=== PATIENT | female | born 1940 | race Caucasian/White ===

== ENCOUNTER 2016-07-21 17:28 | Inpatient (IN) | payer MEDICARE, BC ==
[2016-07-21 17:56] VITALS: BMI 28.3
[2016-07-21 17:59] LABS: MPV 9.6 fL (7.4-10.4)
[2016-07-21 18:04] LABS: ALLEN'S TEST PASS; BEb 2.2 (+/- 2); TCO2 26.1 MMOL/L (23-27)
[2016-07-21 18:05] LABS: ABG Draw Site LRA
[2016-07-21 18:11] LABS: BLOOD UREA NITROGEN 18 MG/DL (7-17); CALC CORRECTED 9.7 MG/DL (8.4-10.2); CALCULATED OSMOLALITY 252 MOs/Kg (270-290); CHLORIDE 98 mEq/L (98-107); GLUCOSE 72 MG/DL (70-99); SODIUM LEVEL 130 mEq/L (137-146); TOTAL PROTEIN 7.9 G/DL (6.3-8.2)
--- NOTE | 2016-07-21 18:11 | EDPRACDOC ---
- General Information Chief Complaint: Altered Mental Status Stated Complaint: AMS Time Seen by Provider: 07/21/16 17:46 Information Source: Patient, [employer] Mode Of Arrival: Ambulance Home Medications: Home Medications Levothyroxine Sodium [Synthroid] 25 mcg PO DAILY 10/03/12 Losartan Potassium [Cozaar] 100 mg PO DAILY 10/03/12 Oxybutynin [Ditropan] 5 mg PO BID 10/03/12 Pravastatin [Pravachol] 20 mg PO HS 10/03/12 Tiotropium [Spiriva Handihaler] 18 mcg INH QHS 10/03/12 Aspirin [Aspirin EC] 1 tab PO QHS 11/09/14 Budesonide/Formoterol [Symbicort 160-4.5 Mcg Inhaler] 2 inh PO BID 11/09/14 Ferrous Sulfate [Iron] 2 tab PO DAILY 11/09/14 Lactulose [Constulose] 2 tbsp PO TID 11/03/15 Polyethylene Glycol 3350 [Miralax] 17 gm PO DAILY PRN 11/03/15 Spironolactone 25 mg PO DAILY #30 tablet 11/03/15 Albuterol/Ipratropium Neb [Duoneb] 3 ml NEB Q6H PRN 05/25/16 CYANOCOBALAMIN (Vitamin B-12) [Vitamin B-12 (cyanocobalamin)] 1,000 mcg IM .MONTHLY 05/25/16 Fluticasone Propionate [Flonase] 2 spray MELANIE DAILY 05/25/16 Furosemide [Lasix] 40 mg PO DAILY 05/25/16 LIDOCAINE 5% Patch [Lidoderm 5% Patch] 1 patch TOP DAILY PRN 05/25/16 Loratadine 10 mg PO DAILY 05/25/16 Metoprolol Succinate (XL) [Toprol Xl] 25 mg PO DAILY 05/25/16 Nystatin 5 ml PO QID 05/25/16 Omeprazole 40 mg PO BID 05/25/16 Calcium Carbonate + Vitamin D [Oscal with Vitamin D] 500 mg PO DAILY 06/14/16 Cholecalciferol (Vitamin D3) [Vitamin D3] 2,000 unit PO DAILY 06/14/16 Citalopram (anti-depressant) [Celexa] 20 mg PO DAILY 06/14/16 Glipizide 5 mg PO QHS 06/14/16 Insulin Glargine [Lantus Pen] 50 units SQ BID 06/14/16 Allergies/Adverse Reactions: Allergies Allergy/AdvReac Type Severity Reaction Status Date / Time clarithromycin [From Biaxin] Allergy Unknown Verified 06/14/16 02:58 trazodone Allergy Rash-Genera Verified 06/14/16 02:58 lized - History of Present Illness Onset: 3 days Exact Onset of Symptoms: Unknown HPI: PT WAS SENT HERE BY EMS FROM THE home B/C OF ALTERED MENTAL STATUS. THE PT IS UNABLE TO GIVE ANY HX. Symptoms began: Gradually Duration: Since Onset Symptoms Currently: Reports: Improved Altered Quality: Reports: Decreased Alertness Altered Severity: Reports: Severe Recent Symptoms of: Reports: None - Treatment Prior to ED Arrival Reported Medications/Treatment [facility] EMS Treatment ALS IV Yes ED Past Medical History - Patient Medical History Neurological History: Reports: MigraineComment Only: Cerebrovascular Accident ( but possible TIA per records) Cardiac History: Reports: Hypertension, Hypercholesterolemia Respiratory History: Reports: COPD, Pneumonia, Emphysema GI/ History: Reports: Urinary Tract Infection, 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 Dr. Covarrubias.), Gastroesophageal Reflux, Ulcer (possible. Known episode of GI bleed.) Musculoskeletal History: Reports: Arthritis Psychological History: Reports: Depression, Anxiety. Denies: Substance Use Disorder Systemic History: Reports: Anemia (chronic iron deficiency anemia of unknown etology), Diabetes (Type 2.), Hypothyroidism. Denies: Cancer Surgical History: Reports: Cholecystectomy, Hysterectomy, Other (R ear x 2. Nasal surgery for trauma. Cataracts. Bladder tack.) - Family Medical History Reports: Hypertension (multi-family), Diabetes (multi-family), Cancer (sisters ( breast) niece (breast) son (kidney)), Stroke (multi-family), Cardiac Disorders ( multi-family) - Social Medical History Smoking Status: Former smoker Social History: Denies: Substance Use Disorder ETOH: None Substance Abuse: None Lives In: Home EDM Review of Systems - Review of Systems ROS Unobtainable: Yes Review of systems cannot be obtained due to the patient's medical condition - Physical Exam Constitutional: Decreased Consciousness, Somnolent Oriented to: Not Oriented Last recorded Vital Signs: Last Vital Signs Temp 98.4 F 07/21/16 17:30 Pulse 98 07/21/16 17:55 Resp 18 07/21/16 17:55 BP 96/42 L 07/21/16 17:55 Pulse Ox 92 07/21/16 17:55 Oxygen Pulse Oxygen Saturation 92 O2 Device Oxygen Flow Rate Fraction of Inspired Oxygen ( FIO2) - HEENT Head: Normal ( normocephalic) Eye Exam: Normal (PERRL, EOMI, Sclera white) Oropharynx: Membranes Dry ENT EAC: Normal TMJ: Normal Nose: No Symptoms Reported (septum midline) Neck: Normal (FROM, trachea at midline) - Respiratory/Cardiovascular Respiratory: Normal - CTA (BBS clear to auscultation without adventitious sounds ) Cardiovascular: Normal (RRR without murmur, gallop or rub) - GI Auscultation: Normal (NABS) Palpation: Normal (Soft,No rebound or guarding, non distended) Tenderness: Non tender Elliott's Sign: Negative - Musculoskeletal Back: Normal (Non-Tender) Extremities: Normal (Normal tone, Pulses 2+ No cyanosis or edema, FROM) - Integumentary Skin: Normal, Warm, Dry Lymphatics: Normal (no adenopathy) - Neurologic Memory Impaired: Unable to Test Motor Function: Unable to Test Cranial Nerve: Unable to Test - Re-evaluation Re-evaluation 1 Re-evaluation Time: 19:30 (more alert, but not back to nl) - Results 07/21/16 17:35 07/21/16 17:35 Puncture Site Lra 07/21/16 18:01 pH 7.490 pH UNITS (7.35-7.45) H 07/21/16 18:01 pCO2 33.0 mmHg (35-45) L 07/21/16 18:01 pO2 59.0 mmHg (80-100) L 07/21/16 18:01 HCO3 25.1 MMOL/L (22-26) 07/21/16 18:01 Total CO2 26.1 MMOL/L (23-27) 07/21/16 18:01 Base Excess 2.2 (+/- 2) H 07/21/16 18:01 FiO2 % 21 07/21/16 18:01 Specimen Drawn By Martin 07/21/16 18:01 Lab Results 07/21/16 18:01 Puncture Site Lra pH 7.490 H pCO2 33.0 L pO2 59.0 L HCO3 25.1 Total CO2 26.1 Base Excess 2.2 H FiO2 % 21 Specimen Drawn By Dared - EKG EKG #1 EKG Time: 18:17 -: Yes EKG interpreted by me Rate: bpm: 92 [place]: Normal Rhythm: NSR Block: None Hypertrophy: None ST: Normal - Diagnostic Imaging Chest Image interpreted by: Radiologist Left basilar opacity is likely due to atelectasis rather than pneumonia. - Departure Yes I personally saw and evaluated the patient. Disposition: Admit IP To This Hospital Condition: Fair Final Diagnosis: Altered mental status, Acute hypoxemic respiratory failure, LLL pneumonia, Delirium Education/Counseling Given To: Patient Education/Counseling Given Regarding: Diagnosis, Treatment Referrals: Anthony Durham MD [Primary Care Provider] - One Week Decision to Admit Time: 19:24 Decision to admit date: 07/21/16 Decision to admit: from ED - Physician Consulted Hospitalist Provider Called: Bran Greenberg
[2016-07-21 18:14] LABS: PARTIAL THROMB. TIME 19.4 SEC (22-35); PT-INR 1.1
--- NOTE | 2016-07-21 18:17 | DIRPT ---
CLINICAL DATA: Shortness of breath. Altered mental status. Symptoms today. Initial encounter. EXAM: PORTABLE CHEST 1 VIEW COMPARISON: Single view of the chest 05/25/2015, 06/18/2016 and 06/23/2016. CT chest 05/25/2016. FINDINGS: Mild opacity is seen in the left lung base. The right lung is clear. Heart size is normal. No pneumothorax or pleural effusion. IMPRESSION: Left basilar opacity is likely due to atelectasis rather than pneumonia. Electronically Signed By: Eliot Zamora M.D. On: 07/21/2016 18:15
[2016-07-21 19:10] LABS: LEUKOCYTES/URINE NEG (NEGATIVE); NITRITE/URINE NEG (NEGATIVE); RBC/URINE 0-2 (0-5); URINE OCCULT BLOOD NEG (NEG/TRACE); WBC/URINE 0-2 (0-5)
[2016-07-21 19:11] LABS: SEG NEUTROPHIL 85 % (45-76)
[2016-07-21 19:18] LABS: FREE T3 3.28 pg/mL (2.77-5.27); FREE T4 1.41 ng/dL (0.78-2.19)
[2016-07-21] MEDS ORDERED: PIPERACILLIN AND TAZOBACTAM 3.375 GM in D5W 100 ML IV ONE (19:22)
[2016-07-21 19:32] LABS: hTSH 3.1 uIU/mL (0.5-4.67)
[2016-07-21] MEDS ORDERED: PEG-ELECTROLYTE 17 GM PACK PO PRN (19:40)
--- NOTE | 2016-07-21 19:40 | HISTPHYS ---
- Chief Complaint Left lower lobe pneumonia - History of Present Illness This is a 76-year-old female who lives with her family in the [facility] and been noted to be quite confused over the last several days. She is normally quite active around the home, but was the confused last few days and also started to cough the last couple of days, coughing up thick green sputum per her son was at the bedside this evening in the emergency department. They note that she had a subjective fever at home tonight, but they did not have a thermometer to measure it with. The patient has also been complaining of some shortness of breath with exertion. Otherwise, she denies any chest pain, shortness of breath at rest, nausea, abdominal pain, changes in bowel or bladder habits, any changes in her weight. No sick contacts or recent travel. No therapies tried prior to arrival. In the emergency department, chest x-ray revealed a left lower lobe pneumonia. Hospitalist group was consulted for further evaluation and inpatient management. 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 Dr. Covarrubias.), Gastroesophageal Reflux, Ulcer (possible. Known episode of GI bleed.) Musculoskeletal History: Reports: Arthritis Systemic History: Reports: Anemia (chronic iron deficiency anemia of unknown etology), Diabetes (Type 2.), Hypothyroidism. Denies: Cancer Neurological History: Reports: MigraineComment Only: Cerebrovascular Accident ( but possible TIA per records) Psychological History: Reports: Depression, Anxiety. Denies: Substance Use Disorder - Surgical History Reports: Cholecystectomy, Hysterectomy, Other (R ear x 2. Nasal surgery for trauma. Cataracts. Bladder tack.) - Medictions/Allergies Allergies clarithromycin [From Biaxin] Allergy (Verified 06/14/16 02:58) Unknown trazodone Allergy (Verified 06/14/16 02:58) Rash-Generalized Home Medications Levothyroxine Sodium [Synthroid] 25 mcg PO DAILY 10/03/12 Losartan Potassium [Cozaar] 100 mg PO DAILY 10/03/12 Oxybutynin [Ditropan] 5 mg PO BID 10/03/12 Pravastatin [Pravachol] 20 mg PO HS 10/03/12 Tiotropium [Spiriva Handihaler] 18 mcg INH QHS 10/03/12 Aspirin [Aspirin EC] 1 tab PO QHS 11/09/14 Budesonide/Formoterol [Symbicort 160-4.5 Mcg Inhaler] 2 inh PO BID 11/09/14 Ferrous Sulfate [Iron] 2 tab PO DAILY 11/09/14 Lactulose [Constulose] 2 tbsp PO TID 11/03/15 Polyethylene Glycol 3350 [Miralax] 17 gm PO DAILY PRN 11/03/15 Spironolactone 25 mg PO DAILY #30 tablet 11/03/15 Albuterol/Ipratropium Neb [Duoneb] 3 ml NEB Q6H PRN 05/25/16 CYANOCOBALAMIN (Vitamin B-12) [Vitamin B-12 (cyanocobalamin)] 1,000 mcg IM .MONTHLY 05/25/16 Fluticasone Propionate [Flonase] 2 spray MELANIE DAILY 05/25/16 Furosemide [Lasix] 40 mg PO DAILY 05/25/16 LIDOCAINE 5% Patch [Lidoderm 5% Patch] 1 patch TOP DAILY PRN 05/25/16 Loratadine 10 mg PO DAILY 05/25/16 Metoprolol Succinate (XL) [Toprol Xl] 25 mg PO DAILY 05/25/16 Nystatin 5 ml PO QID 05/25/16 Omeprazole 40 mg PO BID 05/25/16 Calcium Carbonate + Vitamin D [Oscal with Vitamin D] 500 mg PO DAILY 06/14/16 Cholecalciferol (Vitamin D3) [Vitamin D3] 2,000 unit PO DAILY 06/14/16 Citalopram (anti-depressant) [Celexa] 20 mg PO DAILY 06/14/16 Glipizide 5 mg PO QHS 06/14/16 Insulin Glargine [Lantus Pen] 50 units SQ BID 06/14/16 - Family History Reports: Hypertension (multi-family), Diabetes (multi-family), Cancer (sisters ( breast) niece (breast) son (kidney)), Stroke (multi-family), Cardiac Disorders ( multi-family) - Social History Smoking Status: Former smoker Social History: Denies: Substance Use Disorder - Review of Systems Yes All systems reviewed and were negative except as marked (And as mentioned in the history of present illness above.) Constitutional: No Symptoms Reported (No fever, chills, wt loss/gain, fatigue) Eyes: No Symptoms Reported (No blurry vision, visual changes) Respiratory: No Symptoms Reported (No cough,wheezing or shortness of breath) Cardiovascular: No Symptoms Reported (No Chest pain, palpitations) Gastrointestinal: No Symptoms Reported (No abdominal pain, nausea, vomiting, diarrhea or constipation) Genitourinary: No Symptoms Reported (No dysuria) Musculoskeletal:: No Symptoms Reported (No headache, dizzness, seizures or focal weakness) Integumentary: No Symptoms Reported (No rashes or lesions) Hematologic: No Symptoms Reported (No bleeding or easy bruising) Endocrine: No Symptoms Reported (No polyuria) - Physical Exam Vital Signs: Initial Vitals Temperature 98.4 F 07/21/16 17:30 Pulse Rate 98 07/21/16 17:30 Respiratory Rate 16 07/21/16 17:30 Blood Pressure 113/53 L 07/21/16 17:30 Pulse Oxygen Saturation 88 L 07/21/16 17:30 Exam: Thin frail and disheveled elderly woman lying in a stretcher in the emergency department. She is awake and alert, but oriented only to self and place. - HEENT Head: Normal (normocephalic,atraumatic, trachea midline) Eye: Normal (EOMI, Sclera white) Oropharynx: Normal (moist) Nose: No Symptoms Reported (without discharge or bleeding) Respiratory: Diminished Cardiovascular: Normal (RRR, no murmurs, rubs or gallops) - GI Palpation: Normal (soft, non distended and nontender) - Musculoskeletal Extremities: Normal (normal tone, no cyanosis or edema) - Integumentary Skin: Normal (no rashes or lesions) - Focused CV Perfusion Exam Vital Signs: Last Vital Signs Temp 98.4 F 07/21/16 17:30 Pulse 98 07/21/16 17:55 Resp 18 07/21/16 17:55 BP 96/42 L 07/21/16 17:55 Pulse Ox 92 07/21/16 17:55 - Lab Results Laboratory Tests 06/24/16 06/24/16 07/21/16 05:15 05:15 17:35 WBC 8.3 Hgb 11.6 L Hct Plt Count INR pH pCO2 pO2 Sodium 130 L Potassium 4.0 4.5 BUN 20 H 18 H Creatinine 1.10 H 1.00 AST 51 H ALT 47 Alkaline Phosphatase 139 Troponin I < 0.01 TSH 07/21/16 07/21/16 07/21/16 17:35 17:35 17:35 WBC 25.9 H Hgb 12.8 Hct 37.5 Plt Count 127 L INR 1.1 pH pCO2 pO2 Sodium Potassium BUN Creatinine AST ALT Alkaline Phosphatase Troponin I TSH 3.10 07/21/16 18:01 WBC Hgb Hct Plt Count INR pH 7.490 H pCO2 33.0 L pO2 59.0 L Sodium Potassium BUN Creatinine AST ALT Alkaline Phosphatase Troponin I TSH - Diagnostic Findings Chest x-ray: Mild opacity is seen in the left lung base. The right lung is clear. Heart size is normal. No pneumothorax or pleural effusion. - Assessment (1) LLL pneumonia J18.1 - LOBAR PNEUMONIA, UNSPECIFIED ORGANISM Acute Qualifiers: Pneumonia type: P Aspiration pneumonia type: A Seen on chest x-ray, this is likely the cause of her metabolic encephalopathy. Will treat empirically with IV azithromycin and Rocephin. Follow-up chest x- ray in 48 hours. Pneumonia evidence based care order set has been utilized. (2) Acute hypoxemic respiratory failure J96.01 - ACUTE RESPIRATORY FAILURE WITH HYPOXIA Acute Due to her community- acquired pneumonia. (3) COPD exacerbation J44.1 - CHRONIC OBSTRUCTIVE PULMONARY DISEASE W (ACUTE) EXACERBATION Acute Moderate. Plan: Duonebs q 6hrs and prn albuterol. O2 by NC. Will add IV steroids if respiratory status worsens, but hold off initially as she is not actively wheezing. (4) Hypothyroidism E03.9 - HYPOTHYROIDISM, UNSPECIFIED Acute Qualifiers: Hypothyroidism type: unspecified Qualified Code(s): E03.9 - Hypothyroidism , unspecified Cont home synthroid. (5) Metabolic encephalopathy G93.41 - METABOLIC ENCEPHALOPATHY Acute Likely due to PNA. Ammonia level is only 21, so this is unlikely to be the cause. 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 Cirrhosis related to QUARLES. (7) Poorly controlled diabetes mellitus E11.65 - TYPE 2 DIABETES MELLITUS WITH HYPERGLYCEMIA Chronic Sliding scale insulin therapy as well as reinstitution of her home medications to be given. Case Care Discussed with: Patient, Family, Nursing Staff Total Time: 41
[2016-07-21] MEDS ORDERED: ONDANSETRON HCL 4 MG/2 ML VIAL IV PRN (19:42)
[2016-07-21] MEDS ORDERED: ACETAMINOPHEN 325 MG/TAB TABLET PO PRN (19:42)
[2016-07-21] MEDS ORDERED: ALBUTEROL 0.083% 3 ML NEB NEB PRN (19:43)
[2016-07-21] MEDS ORDERED: GLARGINE INSULIN (LANTUS) 100 UNITS/ML PEN SQ SCH (20:00)
[2016-07-21] MEDS ORDERED: FLUTICASONE PROPIONATE 16 GM BOT NAS SCH (20:00)
[2016-07-21] MEDS: Albuterol/Ipratropium Neb 3 ML NEB NEB SCH (20:10)
[2016-07-21] MEDS ORDERED: GLUCOSE (ORAL GEL) 15 GM TUBE PO PRN (20:36)
[2016-07-21] MEDS ORDERED: DEXTROSE 25 GM/50 ML PFS IV PRN (20:36)
[2016-07-21] MEDS ORDERED: GLUCAGON 1 MG VIAL SQ PRN (20:36)
[2016-07-21] MEDS ORDERED: Non-Formulary Medication ITEM (Tiotropium [Spiriva Handihaler] 18 MCG) INH SCH (21:00)
[2016-07-21] MEDS: CEFTRIAXONE 1 GM in D5W 100 ML IV SCH (21:09)
[2016-07-21] MEDS: NS 1,000 ML IV SCH (21:09)
[2016-07-21] MEDS: REGULAR INSULIN 100 UNITS/ML - 3 ML VIAL SQ SCH (21:12)
[2016-07-21] MEDS: GLARGINE INSULIN (LANTUS) 100 UNITS/ML PEN SQ SCH (21:16)
[2016-07-21] MEDS: GLIPIZIDE 5 MG TAB PO SCH (21:17)
[2016-07-21] MEDS: ENOXAPARIN 40 MG/0.4 ML PFS SQ SCH (21:17)
[2016-07-21] MEDS: OXYBUTYNIN 5 MG TAB PO SCH (21:17)
[2016-07-21] MEDS: LACTULOSE 20 GM/30 ML ORAL SOLN PO SCH (21:17)
[2016-07-21] MEDS: NYSTATIN ORAL SUSP 5 ML PO SCH (21:17)
[2016-07-21] MEDS: PRAVASTATIN 20 MG TAB PO SCH (21:17)
[2016-07-21] MEDS ORDERED: Vaccine Screening Complete SCH (22:00)
[2016-07-21] MEDS: AZITHROMYCIN 500 MG in D5W 250 ML IV SCH (22:15)
[2016-07-22] MEDS: Albuterol/Ipratropium Neb 3 ML NEB NEB SCH ×4 (01:52→21:17)
[2016-07-22] MEDS ORDERED: PIPERACILLIN AND TAZOBACTAM 4.5 GM in D5W 100 ML IV SCH (02:00)
[2016-07-22 04:41] LABS: MPV 9.4 fL (7.4-10.4)
[2016-07-22 04:49] LABS: BLOOD UREA NITROGEN 19 MG/DL (7-17); CALCIUM 8.1 MG/DL (8.4-10.2); CALCULATED OSMOLALITY 251 MOs/Kg (270-290); CHLORIDE 96 mEq/L (98-107); GLUCOSE 126 MG/DL (70-99); SODIUM LEVEL 128 mEq/L (137-146)
[2016-07-22] MEDS: PANTOPRAZOLE 40 MG TAB PO SCH ×2 (06:10→18:21)
[2016-07-22] MEDS: LACTULOSE 20 GM/30 ML ORAL SOLN PO SCH ×2 (06:10→13:32)
[2016-07-22] MEDS: REGULAR INSULIN 100 UNITS/ML - 3 ML VIAL SQ SCH ×3 (06:10→18:21)
[2016-07-22] MEDS: NYSTATIN ORAL SUSP 5 ML PO SCH ×3 (08:45→18:21)
[2016-07-22] MEDS: OXYBUTYNIN 5 MG TAB PO SCH (08:45)
[2016-07-22] MEDS: FERROUS SULFATE 324 MG TAB PO SCH ×2 (08:45→18:21)
[2016-07-22] MEDS: SPIRONOLACTONE 25 MG TAB PO SCH (08:45)
[2016-07-22] MEDS: Loratadine 10 MG TAB PO SCH (08:45)
[2016-07-22] MEDS: GLARGINE INSULIN (LANTUS) 100 UNITS/ML PEN SQ SCH (08:46)
[2016-07-22] MEDS: FLUTICASONE PROPIONATE 16 GM BOT NAS SCH (08:46)
[2016-07-22] MEDS: LEVOTHYROXINE 25 MCG (0.025 MG) TAB PO SCH (08:49)
[2016-07-22] MEDS: METOPROLOL (TOPROL-XL) 25 MG TAB PO SCH (08:49)
[2016-07-22] MEDS: FUROSEMIDE 40 MG TAB PO SCH (08:49)
[2016-07-22] MEDS: NS 1,000 ML IV SCH ×2 (08:50→18:19)
--- NOTE | 2016-07-22 09:36 | GENMEDPROG ---
Chief Complaint: States he is feeling better today less shortness breath patient complains of soreness in the site of previous right rib fractures Notes Reviewed: Yes Events from last night noted and discussed with Clinical Staff Current Medication List: Reviewed Currently: Reports: Cough, Wheezing DVT Prophylaxis: Yes - Physical Examination Vital Signs and I&O: Last Vital Signs Temp 98.0 F 07/22/16 08:12 Pulse 100 07/22/16 08:12 Resp 16 07/22/16 08:12 BP 127/60 07/22/16 08:12 Pulse Ox 95 07/22/16 08:12 Oxygen Pulse Oxygen Saturation 95 O2 Device Nasal Cannula Oxygen Flow Rate 3 Fraction of Inspired Oxygen ( 40 FIO2) Intake & Output 07/19/16 07/20/16 07/21/16 07/22/16 23:59 23:59 23:59 23:59 Intake Total 30 1164 Output Total 500 Balance 30 664 Patient's weight 74.752 kg General: Alert, Oriented x3, No acute distress, Well appearing, Well nourished HEENT: Normal (Normocephalic, atraumatic;EOMI.Sclera white, Nares patent, without discharge or bleeding. No oropharyngeal lesions or erythema. Mucous membranes are dry.) Neck: Non-tender, Full range of motion, Normal Trachea alignment, Normal inspection (No cervical lymphadenopathy. No supraclavicular lymphadenopathy.), No Masses palpable, Supple Lymphatics: Normal (No lymph node swelling or pain.) Respiratory: Diminished, Rhonchi, Wheezes. negative: Rales Cardiovascular: Regular rate and rhythm (No bradycardia or tachycardia), Normal S1, No Gallops,Rubs/Murmurs, Normal S2 GI: Normal bowel sounds (normal active sounds), Soft (non-distended), Non tender , No hepatospenomegaly, No masses Extremities/Musculoskeletal: Normal pulses (DP pulses 2+ bilaterally) Skin: Warm,Dry and Intact, No rashes, No significant lesion Neurological: Strength at 5/5 X4 ext (Motor 5/5 throughout.), Normal tone, Cranial nerves 3-12 NL ( 2-12 grossly intact.) Psych/Mental Status: Cooperative. negative: Anxious Lab/DI/Studies Reviewed: 07/22/16 04:10 07/22/16 04:10 Laboratory Results - last 24 hr 07/21/16 07/22/1607/22/17 23:15 04:10 04:10 WBC 19.4 H RBC 3.35 L Hgb 10.9 L D Hct 32.4 L MCV 97 MCH 32.7 H MCHC 33.7 RDW 13.5 Plt Count 101 L MPV 9.4 Sodium 128 L Potassium 3.8 Chloride 96 L Carbon Dioxide 25 Anion Gap 11 BUN 19 H Creatinine 1.20 H Estimated GFR (MDRD) 44 L Glucose 126 H POC Capillary Glucose Calculated Osmolality 251 L Calcium 8.1 L Troponin I < 0.01 07/22/16 07/22/16 07/22/16 05:02 13:30 17:04 WBC RBC Hgb Hct MCV MCH MCHC RDW Plt Count MPV Sodium Potassium Chloride Carbon Dioxide Anion Gap BUN Creatinine Estimated GFR (MDRD) Glucose POC Capillary Glucose 131 H 225 H 204 H Calculated Osmolality Calcium Troponin I 07/22/16 20:26 WBC RBC Hgb Hct MCV MCH MCHC RDW Plt Count MPV Sodium Potassium Chloride Carbon Dioxide Anion Gap BUN Creatinine Estimated GFR (MDRD) Glucose POC Capillary Glucose 179 H Calculated Osmolality Calcium Troponin I - Assessment (1) Acute hypoxemic respiratory failure Acute J96.01 - ACUTE RESPIRATORY FAILURE WITH HYPOXIA Comment/Plan: Due to her community-acquired pneumonia. (2) COPD exacerbation Acute J44.1 - CHRONIC OBSTRUCTIVE PULMONARY DISEASE W (ACUTE) EXACERBATION Comment/Plan: Moderate. Plan: Duonebs q 6hrs and prn albuterol. O2 by NC. Will add IV steroids if respiratory status worsens, but hold off initially as she is not actively wheezing. (3) Hypothyroidism Acute E03.9 - HYPOTHYROIDISM, UNSPECIFIED Qualifiers: Hypothyroidism type: acquired Qualified Code(s): E03.9 - Hypothyroidism, unspecified Comment/Plan: Cont home synthroid. (4) Pneumonia Acute J18.9 - PNEUMONIA, UNSPECIFIED ORGANISM Comment/Plan: IV antibiotics including Rocephin Zithromax. (5) Type 2 diabetes mellitus with hyperglycemia Acute E11.65 - TYPE 2 DIABETES MELLITUS WITH HYPERGLYCEMIA Qualifiers: Diabetes mellitus manager intermediate insulin use: with manager intermediate use Qualified Code( s): E11.65 - Type 2 diabetes mellitus with hyperglycemia; Z79.4 - manager intermediate ( current) use of insulin Comment/Plan: Continue with current medications and sliding scale insulin coverage. A1c is 7.6. (6) Non-alcoholic cirrhosis Chronic K74.60 - UNSPECIFIED CIRRHOSIS OF LIVER Comment/Plan: 06/18/2016 continue with lactulose. Cirrhosis related to QUARLES. Case Care Discussed with: Patient, Nursing Staff, Resource Management Education/Counseling Given To: Patient Education/Counseling Given Regarding: Diagnosis, Treatment Total Time: 37 min Critical Care: No Code: 71889 (12+)
[2016-07-23] MEDS: Albuterol/Ipratropium Neb 3 ML NEB NEB SCH ×2 (01:49→08:35)
[2016-07-23] MEDS: NS 1,000 ML IV SCH ×2 (03:50→07:28)
[2016-07-23] MEDS: OXYBUTYNIN 5 MG TAB PO SCH ×2 (03:51→08:43)
[2016-07-23] MEDS: LACTULOSE 20 GM/30 ML ORAL SOLN PO SCH ×3 (03:52→13:26)
[2016-07-23] MEDS: CEFTRIAXONE 1 GM in D5W 100 ML IV SCH (03:52)
[2016-07-23] MEDS: ENOXAPARIN 40 MG/0.4 ML PFS SQ SCH (03:55)
[2016-07-23] MEDS: PRAVASTATIN 20 MG TAB PO SCH (03:56)
[2016-07-23] MEDS: NYSTATIN ORAL SUSP 5 ML PO SCH ×3 (03:56→11:57)
[2016-07-23] MEDS: REGULAR INSULIN 100 UNITS/ML - 3 ML VIAL SQ SCH ×3 (04:07→11:50)
[2016-07-23] MEDS: GLARGINE INSULIN (LANTUS) 100 UNITS/ML PEN SQ SCH ×2 (04:09→08:44)
[2016-07-23] MEDS: GLIPIZIDE 5 MG TAB PO SCH (04:09)
[2016-07-23] MEDS: AZITHROMYCIN 500 MG in D5W 250 ML IV SCH (04:26)
[2016-07-23] MEDS: PROBIOTIC BLEND TAB PO SCH ×2 (04:45→11:57)
[2016-07-23 07:26] LABS: MPV 9.1 fL (7.4-10.4)
[2016-07-23] MEDS: PANTOPRAZOLE 40 MG TAB PO SCH (07:28)
[2016-07-23 07:37] LABS: BLOOD UREA NITROGEN 14 MG/DL (7-17); CALCIUM 7.9 MG/DL (8.4-10.2); CALCULATED OSMOLALITY 260 MOs/Kg (270-290); CHLORIDE 103 mEq/L (98-107); GLUCOSE 169 MG/DL (70-99); SODIUM LEVEL 132 mEq/L (137-146)
--- NOTE | 2016-07-23 08:18 | DIRPT ---
CLINICAL DATA: Followup pneumonia. EXAM: CHEST 2 VIEW COMPARISON: 07/21/2016 FINDINGS: The cardiac silhouette, mediastinal and hilar contours are within normal limits and stable. There is tortuosity and calcification of the thoracic aorta. Chronic underlying lung disease with emphysema and pulmonary scarring. Slight progression of interstitial process in the left lung and left basilar atelectasis or infiltrate. No pleural effusion. IMPRESSION: Slight progression of interstitial process in the left lung and left basilar atelectasis or infiltrate. Electronically Signed By: Prashanth Maria M.D. On: 07/23/2016 08:16
[2016-07-23] MEDS: FERROUS SULFATE 324 MG TAB PO SCH (08:42)
[2016-07-23] MEDS: Loratadine 10 MG TAB PO SCH (08:43)
[2016-07-23] MEDS: SPIRONOLACTONE 25 MG TAB PO SCH (08:43)
[2016-07-23] MEDS: FLUTICASONE PROPIONATE 16 GM BOT NAS SCH (08:44)
[2016-07-23] MEDS: METOPROLOL (TOPROL-XL) 25 MG TAB PO SCH (08:45)
[2016-07-23] MEDS: LEVOTHYROXINE 25 MCG (0.025 MG) TAB PO SCH (08:45)
[2016-07-23] MEDS: FUROSEMIDE 40 MG TAB PO SCH (08:45)
--- NOTE | 2016-07-23 12:06 | PCM.DCS92 ---
- Final/Secondary Discharge Diagnosis (1) Acute hypoxemic respiratory failure Acute J96.01 - ACUTE RESPIRATORY FAILURE WITH HYPOXIA Present on Admission: Yes Comment: Due to her community-acquired pneumonia. (2) COPD exacerbation Acute J44.1 - CHRONIC OBSTRUCTIVE PULMONARY DISEASE W (ACUTE) EXACERBATION Present on Admission: Yes Comment: Moderate. Plan: Duonebs q 6hrs and prn albuterol. O2 by NC. Will add IV steroids if respiratory status worsens, but hold off initially as she is not actively wheezing. (3) Hypothyroidism Acute E03.9 - HYPOTHYROIDISM, UNSPECIFIED Present on Admission: Yes acquired E03.9 - Hypothyroidism, unspecified Comment: Cont home synthroid. (4) Pneumonia Acute J18.9 - PNEUMONIA, UNSPECIFIED ORGANISM Present on Admission: Yes Comment: IV antibiotics including Rocephin Zithromax. (5) Type 2 diabetes mellitus with hyperglycemia Acute E11.65 - TYPE 2 DIABETES MELLITUS WITH HYPERGLYCEMIA Present on Admission: Yes with shelter use E11.65 - Type 2 diabetes mellitus with hyperglycemia; Z79.4 - terminal system operator (current) use of insulin Comment: Continue with current medications and sliding scale insulin coverage. A1c is 7.6. 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 Cirrhosis related to QUARLES. Discharge Disposition: Discharge w/ Home Health Discharge Condition: Improved Cognitive Discharge Status: Unimpaired Fuctional Discharge Status: Walker Assistance Physician Follow up/Referrals: Anthony Durham MD [Primary Care Provider] - 07/30/16 10:00 am Home Medications / New Prescriptions: New Azithromycin [Zithromax Tri-Feliciano] 500 mg PO DAILY #3 tablet Cefdinir [Omnicef] 300 mg PO BID #10 cap Probiotic Blend [Anca Q] 1 each PO BID #20 tab Continue Losartan Potassium [Cozaar] 100 mg PO DAILY Levothyroxine Sodium [Synthroid] 25 mcg PO DAILY Tiotropium [Spiriva Handihaler] 18 mcg INH QHS Pravastatin [Pravachol] 20 mg PO HS Oxybutynin [Ditropan] 5 mg PO BID Ferrous Sulfate [Iron] 2 tab PO DAILY Aspirin [Aspirin EC] 1 tab PO QHS Budesonide/Formoterol [Symbicort 160-4.5 Mcg Inhaler] 2 inh PO BID Polyethylene Glycol 3350 [Miralax] 17 gm PO DAILY PRN PRN Reason: Constipation Lactulose [Constulose] 2 tbsp PO TID Spironolactone 25 mg PO DAILY #30 tablet Nystatin 5 ml PO QID CYANOCOBALAMIN (Vitamin B-12) [Vitamin B-12 (cyanocobalamin)] 1,000 mcg IM .MONTHLY Albuterol/Ipratropium Neb [Duoneb] 3 ml NEB Q6H PRN PRN Reason: Shortness Of Breath Metoprolol Succinate (XL) [Toprol Xl] 25 mg PO DAILY Loratadine 10 mg PO DAILY Furosemide [Lasix] 40 mg PO DAILY Omeprazole 40 mg PO BID Fluticasone Propionate [Flonase] 2 spray MELANIE DAILY LIDOCAINE 5% Patch [Lidoderm 5% Patch] 1 patch TOP DAILY PRN PRN Reason: Pain Citalopram (anti-depressant) [Celexa] 20 mg PO DAILY Calcium Carbonate + Vitamin D [Oscal with Vitamin D] 500 mg PO DAILY Insulin Glargine [Lantus Pen] 50 units SQ BID Glipizide 5 mg PO QHS Cholecalciferol (Vitamin D3) [Vitamin D3] 2,000 unit PO DAILY Discharge Home Medication List Levothyroxine Sodium [Synthroid] 25 mcg PO DAILY 10/03/12 [History Confirmed Last Taken 07/20/16] Losartan Potassium [Cozaar] 100 mg PO DAILY 10/03/12 [History Confirmed Last Taken 07/20/16] Oxybutynin [Ditropan] 5 mg PO BID 10/03/12 [History Confirmed 07/21/16 Last Taken 07/20/16] Pravastatin [Pravachol] 20 mg PO HS 10/03/12 [History Confirmed 07/21/16 Last Taken 07/20/16] Tiotropium [Spiriva Handihaler] 18 mcg INH QHS 10/03/12 [History Confirmed 07/21 Last Taken 07/20/16] Aspirin [Aspirin EC] 1 tab PO QHS 11/09/14 [History Confirmed 07/21/16 Last Taken 07/20/16] Budesonide/Formoterol [Symbicort 160-4.5 Mcg Inhaler] 2 inh PO BID 11/09/14 [ History Confirmed 07/21/16 Last Taken 07/20/16] Ferrous Sulfate [Iron] 2 tab PO DAILY 11/09/14 [History Confirmed 07/21/16 Last Taken 07/20/16] Lactulose [Constulose] 2 tbsp PO TID 11/03/15 [History Confirmed 07/21/16 Last Taken 07/20/16] Polyethylene Glycol 3350 [Miralax] 17 gm PO DAILY PRN 11/03/15 [History Confirmed 07/21/16 Last Taken 05/25/16] Spironolactone 25 mg PO DAILY #30 tablet 11/03/15 [Rx Confirmed 07/21/16 Last Taken 07/20/16] Albuterol/Ipratropium Neb [Duoneb] 3 ml NEB Q6H PRN 05/25/16 [History Confirmed 07/21/16 Last Taken 07/20/16] CYANOCOBALAMIN (Vitamin B-12) [Vitamin B-12 (cyanocobalamin)] 1,000 mcg IM .MONTHLY 05/25/16 [History Confirmed 07/21/16 Last Taken 1 Month Ago] Fluticasone Propionate [Flonase] 2 spray MELANIE DAILY 05/25/16 [History Confirmed 07/21/16 Last Taken 07/20/16] Furosemide [Lasix] 40 mg PO DAILY 05/25/16 [History Confirmed 07/21/16 Last Taken 07/20/16] LIDOCAINE 5% Patch [Lidoderm 5% Patch] 1 patch TOP DAILY PRN 05/25/16 [History Confirmed 07/21/16 Last Taken 06/21/16] Loratadine 10 mg PO DAILY 05/25/16 [History Confirmed 07/21/16 Last Taken ] Metoprolol Succinate (XL) [Toprol Xl] 25 mg PO DAILY 05/25/16 [History Confirmed 07/21/16 Last Taken 07/20/16] Nystatin 5 ml PO QID 05/25/16 [History Confirmed 07/21/16 Last Taken 07/20/16] Omeprazole 40 mg PO BID 05/25/16 [History Confirmed 07/21/16 Last Taken 07/20/16 ] Calcium Carbonate + Vitamin D [Oscal with Vitamin D] 500 mg PO DAILY 06/14/16 [ History Confirmed 07/21/16 Last Taken 07/20/16] Cholecalciferol (Vitamin D3) [Vitamin D3] 2,000 unit PO DAILY 06/14/16 [History Confirmed 07/21/16 Last Taken 07/20/16] Citalopram (anti-depressant) [Celexa] 20 mg PO DAILY 06/14/16 [History Confirmed 07/21/16 Last Taken 07/20/16] Glipizide 5 mg PO QHS 06/14/16 [History Confirmed 07/21/16 Last Taken 07/20/16] Insulin Glargine [Lantus Pen] 50 units SQ BID 06/14/16 [History Confirmed Last Taken 07/20/16] Azithromycin [Zithromax Tri-Feliciano] 500 mg PO DAILY #3 tablet 07/23/16 [Rx Last Taken Unknown] Cefdinir [Omnicef] 300 mg PO BID #10 cap 07/23/16 [Rx Last Taken Unknown] Probiotic Blend [Anca Q] 1 each PO BID #20 tab 07/23/16 [Rx Last Taken Unknown] 07/23/16 06:49 07/23/16 06:49 Laboratory Results - last 24 hr 07/22/16 07/22/16 07/22/16 13:30 17:04 20:26 WBC RBC Hgb Hct MCV MCH MCHC RDW Plt Count MPV Sodium Potassium Chloride Carbon Dioxide Anion Gap BUN Creatinine Estimated GFR (MDRD) Glucose POC Capillary Glucose 225 H 204 H 179 H Calculated Osmolality Calcium 07/23/16 07/23/16 07/23/16 04:06 06:49 06:49 WBC 11.7 H RBC 3.14 L Hgb 10.4 L Hct 30.7 L MCV 98 MCH 33.2 H MCHC 33.9 RDW 13.4 Plt Count 98 L MPV 9.1 Sodium 132 L Potassium 3.8 Chloride 103 Carbon Dioxide 23 Anion Gap 10 BUN 14 Creatinine 0.90 Estimated GFR (MDRD) > 60 Glucose 169 H POC Capillary Glucose 153 H Calculated Osmolality 260 L Calcium 7.9 L 07/23/16 07/23/16 06:54 11:13 WBC RBC Hgb Hct MCV MCH MCHC RDW Plt Count MPV Sodium Potassium Chloride Carbon Dioxide Anion Gap BUN Creatinine Estimated GFR (MDRD) Glucose POC Capillary Glucose 170 H 138 H Calculated Osmolality Calcium O2 Device: Nasal Cannula Oxygen Flow Rate: 1 Oxygen to be used after Discharge: Continuous Additional Instructions: Pt at home to ambulate Diet at Discharge: As Tolerated Activity: As Tolerated Discontinue use of:: Alcohol, All Types of Tobacco - DC Summary Notes HPI/Notes: This is a 76-year-old female who [place] and been noted to be quite confused over the last several days. She is normally quite active around the home, but was the confused last few days and also started to cough the last couple of days, coughing up thick green sputum per her son was at the bedside this evening in the emergency department. They note that she had a subjective fever at home tonight, but they did not have a thermometer to measure it with. The patient has also been complaining of some shortness of breath with exertion. Otherwise, she denies any chest pain, shortness of breath at rest, nausea, abdominal pain, changes in bowel or bladder habits, any changes in her weight. No sick contacts or recent travel. No therapies tried prior to arrival. In the emergency department, chest x-ray revealed a left lower lobe pneumonia. Hospitalist group was consulted for further evaluation and inpatient management. Hospital Course Note:: Discharge summary on patient named FABIOLA SHAIKH admitted to [facility] on 07/21/16 by Bran Greenberg MD. Date of discharge is []. cc: Dr. Durham Code: [id number] (>30min.) - Physical Exam Vital Signs: Last Vital Signs Temp 99.5 F 07/23/16 05:30 Pulse 98 07/23/16 05:30 Resp 18 07/23/16 05:30 BP 107/59 L 07/23/16 05:30 Pulse Ox 93 07/23/16 08:34 Oxygen Pulse Oxygen Saturation 93 O2 Device Nasal Cannula Oxygen Flow Rate 2 Fraction of Inspired Oxygen ( 40 FIO2) Constitutional: No apparent distress, Alert Oriented to: Time, Person, Place - HEENT Head: Normal (normocephalic,atraumatic, trachea midline) Eye: Normal (EOMI, Sclera white) Oropharynx: Normal (moist) ENT EAC: Normal (No oropharyngeal lesions or erythema. Mucous membranes are dry. ) TMJ: Normal Nose: No Symptoms Reported (without discharge or bleeding) - Respiratory/Cardiovascular Respiratory: Diminished, Rhonchi, Wheezes. negative: Rales Cardiovascular: Normal (RRR , Normal S1, S2. No murmurs, rubs, or gallops. PMI non-displaced. Carotids: no carotid bruits. No bradycardia or tachycardia. DP pulses 2+ bilaterally.) - GI Auscultation: Normal (normal active sounds) Palpation: Normal (soft, non distended and nontender) Tenderness: Non tender (No rebound or guarding) Elliott's Sign: Negative - Exam Deferred: Yes - Musculoskeletal Back: Normal (Non-Tender) Extremities: Normal (normal tone, no cyanosis or edema) - Integumentary Skin: Normal (Warm dry no rashes) Lymphatics: Normal (No lymph node swelling or pain.) - Neurologic Memory Impaired: Normal Motor Function: Normal (Motor 5/5 throughout.Normal tone, Pulses 2+ No cyanosis or edema, FROM) Cranial Nerve: Normal (CN II-XII intact sensation, strength 5/5) Cerebellar: Normal (Babinski: toes downgoing bilaterally. Intact Finger to nose. Sensory grossly intact to light touch. Intact rapid alternating movements bilaterally. No pronator drift.) Mood Description: Normal (Fully oriented. Normal and appropriate affect.) Perception: Normal (Normal and appropriate affect.)
[2016-07-23 13:56] VITALS: BP 101/60; PULSE 90; TEMP 99.4
== END 2016-07-23 15:42 | disposition home health service (06) | DRG 189 ==
LOC: ED 17:28 → PCU 19:43 → MPS3 07-22 20:10
PROVIDERS: ADMIT Internal Medicine; ATTEND Internal Medicine
PROC: 5A09357 Assistance with Respiratory Ventilation, Less than 24 Consecutive Hours, Continuous Positive Airway Pressure (ICD-10-PCS; principal; 2016-07-21)
PROC: 039C3ZZ Drainage of Left Radial Artery, Percutaneous Approach (ICD-10-PCS; 2016-07-21)
DX: J96.01 Acute respiratory failure with hypoxia (principal); G93.41 Metabolic encephalopathy; J18.1 Lobar pneumonia, unspecified organism; E11.65 Type 2 diabetes mellitus with hyperglycemia; J44.0 Chronic obstructive pulmonary disease with (acute) lower respiratory infection; J44.1 Chronic obstructive pulmonary disease with (acute) exacerbation; E03.9 Hypothyroidism, unspecified; K74.60 Unspecified cirrhosis of liver; Z87.891 Personal history of nicotine dependence; I10 Essential (primary) hypertension; E78.00 Pure hypercholesterolemia, unspecified; K21.9 Gastro-esophageal reflux disease without esophagitis; D50.9 Iron deficiency anemia, unspecified; Z79.4 Long term (current) use of insulin; Z79.82 Long term (current) use of aspirin; Z86.73 Personal history of transient ischemic attack (TIA), and cerebral infarction without residual deficits; Z79.84 Long term (current) use of oral hypoglycemic drugs; Z79.899 Other long term (current) drug therapy
CPT/HCPCS: 36415; 36600; 51701; 71010; 71020; 80048; 80053; 81001; 82043; 82140; 82803; 82962; 83036; 84439; 84443; 84481; 84484; 85007; 85027; 85610; 85730; 87040; 87086; 93005; 94640; 94660; 96372; 96374; 97162; 98960; 99284; G0237; J0456; J0696; J1650; J2405; J2543; J3490; J7060; J7070; J7620